=== PATIENT | female | born 1985 | race Caucasian/White ===

== ENCOUNTER 2016-08-30 11:02 | Emergency (ER) | payer MEDICARE ==
[~2016-08-30 11:02] MED LIST: ABILIFY10 MG; ABILIFY2 MG PO; ABILIFY5 MG; ACETAMINOPHEN325 M2 PO; ADVAIR 2501 DISK W/D; ALBUTEROL17 GM; ALEVE220 M3 PO; ANTIVERT25 MG PO; ASTELIN137 MCG; ATIVAN0.5 MG PO; ATIVAN1 MG; ATIVAN1 MG PO; ATIVAN2 MG PO; BACITRACIN28.4 G2 TOP; BACTRIM DS TAB1 EAC2 PO; BACTRIM DS TABL1 TAB PO; BENADRYL ALLERG25 M1 PO; BENADRYL25 M3 PO; CARAFATE1 G PO; CHANTIX1 EACH PO; CIPRO500 MG PO; CYMBALTA60 MG; HYDROCODON-ACE1 EAC5 PO; IBUPROFEN400 M1 PO; LAMICTAL200 MG PO; LEVAQUIN750 M1 PO; MOTRIN800 MG PO; NASONEX17 GM; NICODERM CQ1 EAC2; NO HOME MEDICATION; NORCO 10/325 TA1 TAB PO; NORCO 5-325 TA1 EACH PO; NORCO 5/3251 TAB PO; PERCOCET 10/31 UDTAB; PERCOCET 10/31 UDTAB PO; PERCOCET 5/3251 TAB; PERCOCET 5/3251 TAB PO; PHENERGAN25 M1 PO; PHENERGAN25 MG PO; PREDNISONE20 MG PO; PRENATAL1 TAB; PRIMIDONE50 MG PO; SEROQUEL XR400 MG PO; SEROQUEL400 MG PO; TRAMADOL HCL50 M2 PO; TYLENOL EXTRA500 M1 PO; TYLENOL325 M2 PO; ZOFRAN4 M2 PO; ZYRTEC10 MG; ZYVOX600 MG
[2016-08-30] MEDS ORDERED: NO HOME MEDICATION XX (11:07)
[2016-08-30] MEDS ORDERED: BACTRIM DS TAB1 EAC2 PO (11:41)
[2016-08-30] MEDS ORDERED: NORCO 5-325 TA1 EACH PO (11:41)
== END 2016-08-30 11:56 ==
LOC: EDMED 11:02
DX: S21.002A Unspecified open wound of left breast, initial encounter (principal); N61.0 Mastitis without abscess; J45.909 Unspecified asthma, uncomplicated; D64.9 Anemia, unspecified; F31.9 Bipolar disorder, unspecified; F17.210 Nicotine dependence, cigarettes, uncomplicated; X58.XXXA Exposure to other specified factors, initial encounter

== ENCOUNTER 2016-09-13 09:51 | Emergency (ER) | payer MEDICARE ==
[~2016-09-13 09:51] MED LIST changes: +NO HOME MEDICATION XX
== END 2016-09-13 11:24 ==
LOC: EDMED 09:51
DX: S92.511A Displaced fracture of proximal phalanx of right lesser toe(s), initial encounter for closed fracture (principal); Z88.0 Allergy status to penicillin; Z88.8 Allergy status to other drugs, medicaments and biological substances; W22.03XA Walked into furniture, initial encounter; Y92.009 Unspecified place in unspecified non-institutional (private) residence as the place of occurrence of the external cause